=== PATIENT | male | born 1935 | race Caucasian/White ===

== ENCOUNTER → 2017-01-16 | Outpatient (CLI) | payer MEDICARE, BC ==
[2017-01-16 10:31] LABS: Blood Urea Nitrogen 19 mg/dL (9-20); Non-African American GFR(MDRD) >60 (>60 ml/min/1.73 sqM)
--- NOTE | 2017-01-16 11:43 | CT ---
EXAMINATION TYPE: CT angio neck DATE OF EXAM: 01/16/2017 11:07 AM COMPARISON: NONE HISTORY: 81-year-old male history of Right sided stenosis and carotid endarterectomy. Severe stenosis on the ultrasound performed at the office. TECHNIQUE: Contiguous axial scanning of the neck performed with IV Contrast, patient injected with 65 mL of Omnipaque 350. Coronal/sagittal MIP reconstructions performed. Rotational 3-D reconstructions generated on a dedicated independent workstation. Detailed analysis with three-vessel probe. CT DLP: 355.4 mGycm Automated exposure control for dose reduction was used. FINDINGS: Polyp/mucosal retention cyst within the right greater than left maxillary sinuses. Moderate mucosal t hickening within the ethmoid air cells. Calcifications in both palatine tonsils suggests sequela of prior infections.. Mild diffuse bronchial wall thickening and mild centrilobular emphysema in the upper lungs compatible with COPD. Borderline ectasia upper descending thoracic aorta at 3.0 cm. Mild ectasia ascending aorta at 3.7 cm. 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 The vertebral arteries remain patent throughout their course, bilaterally. Some postsurgical changes are noted at the right bifurcation compatible with history of prior endarte rectomy. Approximately 2 to 2 1/2 cm above the right bifurcation, there is a focal thin flap of tissue that ru ns horizontally across the vessel lumen. The bifurcation is located approximately 1.8 cm below the an gle of the mandible. Otherwise, the common and internal carotid arteries are widely patent. On the left, there is mild apical scarring calcification and plaque at the bifurcation with minimal, less than 30% narrowing at the carotid bulb. The upper left ICA is tortuous. There is a 2.3 cm cystic lesion along the right paramedian upper back cutaneous/subcutaneous soft tis sues, axial image 38. In addition, there is an ovoid enhancing 2.1 x 1.5 cm lesion at the right parotid tail. IMPRESSION: 1. POSTSURGICAL CHANGES ON THE RIGHT. THE RIGHT COMMON CAROTID ARTERY, BIFURCATION, AND CAROTID BULB ARE WIDELY PATENT. HOWEVER, LOCATED APPROXIMATELY 2 TO 2 1/2 CM ABOVE THE BIFURCATION, THERE IS THE S UGGESTION OF A THIN WEB RUNNING ACROSS THE VESSEL LUMEN. THIS LIKELY ACCOUNTS FOR THE SIGNIFICANT BOAZ NOSIS DETECTED ON THE PATIENT'S OUTSIDE ULTRASOUND. THE RIGHT BIFURCATION IS 1.8 CM BELOW THE ANGLE O F THE MANDIBLE. 2. MILD ATHEROSCLEROTIC CHANGE AT THE LEFT BIFURCATION WITH MINIMAL, LESS THAN 30% NARROWING AT THE C AROTID BULB. 3. 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 4. 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 CORRELATE WITH PHYSICAL EXAM FINDINGS A ND POSSIBLE TARGETED ULTRASOUND. BOTH BENIGN AND MALIGNANT ETIOLOGIES ARE IN THE DIFFERENTIAL. CONSID ER ENT CONSULTATION. 5. SUSPECT A 2.3 CM SEBACEOUS CYST ALONG THE RIGHT PARAMEDIAN UPPER BACK. CORRELATE WITH PHYSICAL EXA M FINDINGS. 6. COPD.
== END | disposition home or self-care (01) ==
LOC: RADCTMAIN 09:50
PROVIDERS: ATTEND Thoracic Surgery (Cardiothoracic Vascular Surgery)
DX: I65.22 Occlusion and stenosis of left carotid artery (principal); L98.9 Disorder of the skin and subcutaneous tissue, unspecified; I65.21 Occlusion and stenosis of right carotid artery
CPT/HCPCS: 82565; 84520; 70498; 36415; Q9967

== ENCOUNTER → 2017-09-13 | Outpatient (CLI) | payer MEDICARE, BC ==
[2017-09-13 10:30] LABS: Blood Urea Nitrogen 16 mg/dL (9-20)
--- NOTE | 2017-09-13 11:42 | CT ---
EXAMINATION TYPE: CT angio neck DATE OF EXAM: 09/13/2017 COMPARISON: 01/16/2017 HISTORY: Carotid stenosis CT DLP: 261.3 mGycm CONTRAST: CTA cervical carotids is performed and with IV Contrast, patient injected with 65 mL of Omnipaque 350 . Contrast CTA of the cervical carotids was performed 3-D reconstruction imaging obtained at a separate workstation. 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 The vertebral arteries remain patent throughout their course, bilaterally. Right carotid system: Mild plaque is seen of the right common carotid artery. There is mild plaque a lso noted at the carotid bulb. Distal to the carotid bulb is linear decreased attenuation which may reflect a web resulting in high-grade stenosis of greater than 90%. ECA is patent. Right vertebra l artery appears unremarkable. Left carotid system: Mild plaque is seen of the left common carotid artery. There is mild plaque als o noted at the carotid bulb. Estimated diameter reduction is 50%. Left ICA is tortuous. ECA is ramirez nt. Left vertebral artery appears unremarkable. IMPRESSION: 1. Stable proximal right ICA lab resulting in focal high-grade stenosis. 2. No hemodynamically significant stenosis left carotid system.
== END | disposition home or self-care (01) ==
LOC: RADCTMAIN 09:59
PROVIDERS: ATTEND Thoracic Surgery (Cardiothoracic Vascular Surgery)
DX: I65.21 Occlusion and stenosis of right carotid artery (principal); Z88.0 Allergy status to penicillin
CPT/HCPCS: 82565; 84520; 70498; 36415; Q9967